=== PATIENT | female | born 1975 | race Caucasian/White ===

== ENCOUNTER 2017-02-20 21:29 | Emergency (ER) | payer SELFPAY ==
[~2017-02-20] VITALS: Ht 157.5 cm; Wt 80.0 kg
[2017-02-20] MEDS ORDERED: ACETAMINOPHEN WITH CODEINE 300/30MG TABLET PO STA (21:45)
[2017-02-20 23:52] VITALS: BP 128/79
== END 2017-02-21 00:44 | disposition home or self-care (01) ==
LOC: ER 21:51
DX: S00.83XA Contusion of other part of head, initial encounter (principal); W21.03XA Struck by baseball, initial encounter; Y93.64 Activity, baseball; Y99.8 Other external cause status; Y92.830 Public park as the place of occurrence of the external cause
CPT/HCPCS: 70450; 99284